=== PATIENT | male | born 1975 | race African-American/Black ===

== ENCOUNTER 2021-10-16 15:34 | Emergency (ER) | payer MEDICARE, MEDICAID ==
[~2021-10-16] VITALS: Ht 180.3 cm; Wt 124.0 kg
[2021-10-16] MEDS ORDERED: IBUPROFEN 800MG TABLET PO ONE ×2 (15:45→17:00)
[2021-10-16 16:55] VITALS: BP 161/107
[2021-10-16] MEDS ORDERED: IBUP-2030 MT (17:07)
== END 2021-10-16 17:23 | disposition home or self-care (01) ==
LOC: ER 15:34
DX: S93.602A Unspecified sprain of left foot, initial encounter (principal); Z98.890 Other specified postprocedural states; W01.0XXA Fall on same level from slipping, tripping and stumbling without subsequent striking against object, initial encounter; Y93.89 Activity, other specified; Y92.89 Other specified places as the place of occurrence of the external cause; Y99.8 Other external cause status
CPT/HCPCS: 73630; 99283